=== PATIENT | female | born 1980 | race Hispanic/Latino ===

== ENCOUNTER 2021-01-21 14:21 | Emergency (ER) | payer SELFPAY ==
[~2021-01-21] VITALS: Ht 160 cm; Wt 81.6 kg
[2021-01-21] MEDS ORDERED: ONDANSETRON HCL 4 MG ORAL DISINTEGRATING TAB PO STA (15:09)
[2021-01-21] MEDS ORDERED: KETOROLAC TROMETHAMINE 60 MG/2 ML VIAL IM ONE (15:15)
[2021-01-21 15:58] LABS: CLARITY,URINE SL CLOUDY (CLEAR); COLOR,URINE YELLOW (YELLOW); KETONES,URINE NEGATIVE (NEGATIVE); LEUKOCYTE ESTERASE ,URINE NEGATIVE (NEGATIVE); NITRITE,URINE NEGATIVE (NEGATIVE); PROTEIN,URINE DIPSTICK NEGATIVE (NEGATIVE); URINE UROBILINOGEN 0.2 mg/dL (0.2 - 1)
[2021-01-21 16:12] LABS: BACTERIA,URINE MODERATE /HPF; EPITHELIAL CELLS,URINE FEW /LPF
[2021-01-21] MEDS ORDERED: CIPRO500 MG PO (17:10)
[2021-01-21 17:37] VITALS: BP 136/62
== END 2021-01-21 17:10 | disposition home or self-care (01) ==
LOC: ER 15:03
DX: R10.30 Lower abdominal pain, unspecified (principal); N39.0 Urinary tract infection, site not specified; R05 Cough; M41.9 Scoliosis, unspecified
CPT/HCPCS: 71046; 74176; 81001; 99283